=== PATIENT | female | born 1995 | race Caucasian/White ===

== ENCOUNTER 2016-11-25 20:34 | Emergency (ER) | payer OTHER ==
--- NOTE | 2016-11-25 21:25 | PHYS DOC ---
Past Medical History Past Medical History: No Pertinent History, Hypothyroid Past Surgical History: Tonsillectomy Additional Past Surgical Histo: SPINAL MENNIGITSIS AT AGE 4 Alcohol Use: Rarely Drug Use: None Adult General Chief Complaint Chief Complaint: SORE THROAT HPI HPI Patient is a 21 year old female presents emergency department stating that she has had some sinus pressure and headache with a sore throat for the last 3 days. She states she's been taken Sudafed for the pain and discomfort with minimal relief. She states she is also tried Aleve without relief as well. She states she's had a nausea feeling although she is currently vomiting here in the emergency department. Patient denies any abdominal pain or discomfort. Review of Systems Review of Systems Constitutional: Denies fever or chills [] Eyes: Denies change in visual acuity, redness, or eye pain [] HENT: C/o nasal congestion and sore throat [] Respiratory: Denies cough or shortness of breath [] Cardiovascular: No additional information not addressed in HPI [] GI: Denies abdominal pain, nausea, vomiting, bloody stools or diarrhea [] : Denies dysuria or hematuria [] Musculoskeletal: Denies back pain or joint pain [] Integument: Denies rash or skin lesions [] Neurologic: Denies headache, focal weakness or sensory changes [] Current Medications Current Medications Current Medications Medications (Trade) Dose Ordered Sig/Miles Start Time Stop Time Status Last Admin Dose Admin Ketorolac Tromethamine (Toradol) 30 mg 1X ONCE 11/25/16 21:45 11/25/16 21:46 DC 11/25/16 21:49 30 MG Ondansetron HCl 4 mg 4 mg 1X ONCE 11/25/16 21:30 11/25/16 21:31 DC 11/25/16 21:43 4 MG Sodium Chloride (Iv Sodium Chloride 0.9% 1000ml Bag) 1,000 ml @ 1,000 mls/hr 1X ONCE 11/25/16 21:30 11/25/16 22:29 11/25/16 21:44 1,000 MLS/HR Allergies Allergies Allergies Coded Allergies Type Severity Reaction Last Updated Verified No Known Drug Allergies 11/25/16 No Physical Exam Physical Exam Constitutional: Well developed, well nourished, no acute distress, non-toxic appearance. [] HENT: Normocephalic, atraumatic, bilateral external ears normal, oropharynx moist, no oral exudates, nose normal. Bilateral tympanic membranes appear to be bulging although no redness noted. Patient's mucous membranes with tying appear to have a thick white coating noted. She does have some erythematous noted in her throat no exudate noted. Eyes: PERRLA, EOMI, conjunctiva normal, no discharge. [] Neck: Normal range of motion, no tenderness, supple, no stridor. [] Cardiovascular:Heart rate regular rhythm, no murmur [] Lungs & Thorax: Bilateral breath sounds clear to auscultation [] Abdomen: Bowel sounds normal, soft, no tenderness, no masses, no pulsatile masses. [] Skin: Warm, dry, no erythema, no rash. [] Back: No tenderness Extremities: No tenderness, no cyanosis, no clubbing, ROM intact, no edema. [] Neurologic: Alert and oriented X 3, normal motor function, normal sensory function, no focal deficits noted. [] Psychologic: Affect normal, judgement normal, mood normal. [] Current Patient Data Vital Signs Vital Signs Date Time Temp Pulse Resp B/P Pulse Ox O2 Delivery O2 Flow Rate FiO2 11/25/16 21:01 100.0 122 18 98 Room Air 100.0 Lab Values Laboratory Tests Test 11/25/16 21:37 White Blood Count 11.9x10^3/uL (4.0-11.0) H Red Blood Count 4.73x10^6/uL (3.50-5.40) Hemoglobin 13.9g/dL (12.0-15.5) Hematocrit 41.1% (36.0-47.0) Mean Corpuscular Volume 87fL (79-100) Mean Corpuscular Hemoglobin 30pg (25-35) Mean Corpuscular Hemoglobin Concent 34g/dL (31-37) Red Cell Distribution Width 13.1% (11.5-14.5) Platelet Count 275x10^3/uL (140-400) Neutrophils (%) (Auto) 77% (31-73) H Lymphocytes (%) (Auto) 14% (24-48) L Monocytes (%) (Auto) 8% (0-9) Eosinophils (%) (Auto) 0% (0-3) Basophils (%) (Auto) 0% (0-3) Neutrophils # (Auto) 9.2x10^3uL (1.8-7.7) H Lymphocytes # (Auto) 1.7x10^3/uL (1.0-4.8) Monocytes # (Auto) 1.0x10^3/uL (0.0-1.1) Eosinophils # (Auto) 0.0x10^3/uL (0.0-0.7) Basophils # (Auto) 0.0x10^3/uL (0.0-0.2) Sodium Level 135mmol/L (136-145) L Potassium Level 4.2mmol/L (3.5-5.1) Chloride Level 100mmol/L (98-107) Carbon Dioxide Level 22mmol/L (21-32) Anion Gap 13 (6-14) Blood Urea Nitrogen 12mg/dL (7-20) Creatinine 0.9mg/dL (0.6-1.0) Estimated GFR (Cockcroft-Gault) 78.3 BUN/Creatinine Ratio 13 (6-20) Glucose Level 99mg/dL (70-99) Calcium Level 8.8mg/dL (8.5-10.1) Total Bilirubin 0.5mg/dL (0.2-1.0) Aspartate Amino Transferase (AST) 37U/L (15-37) Alanine Aminotransferase (ALT) 39U/L (14-59) Alkaline Phosphatase 54U/L (46-116) Total Protein 8.4g/dL (6.4-8.2) H Albumin 3.7g/dL (3.4-5.0) Albumin/Globulin Ratio 0.8 (1.0-1.7) L Laboratory Tests 11/25/16 21:37 Laboratory Tests 11/25/16 21:37 EKG EKG [] Radiology/Procedures Radiology/Procedures [] Course & Med Decision Making Course & Med Decision Making Pertinent Labs and Imaging studies reviewed. (See chart for details) Patient began vomiting here in the emergency department. She'll be provided with 1 L of IV fluids as well as Zofran for nausea and vomiting. She'll be provided with a by mouth challenge. 2228 reevaluated patient patient states that she is feeling much better. She has been tolerating by mouth fluids here in the emergency department. She is requesting a popsicle at this time. Patient rapid strep was negative although she does have sinus pressure and tenderness over the frontal area. We'll place her on Augmentin 1 tablet twice day for the next 10 days. Recommended Sudafed to help relieve some of the pressure in the head as well as Mucinex DM to help relieve the pressure in help with drainage. Also recommended plenty fluids such as water or Gatorade or propel. Patient will be discharged home in stable condition she'll also be provided with Zofran for nausea vomiting. Patient agrees with discharge instructions treatment regimens and follow-up recommendations. Signs and symptoms to return back to emergency department was also provided. [] Dragon Disclaimer Dragon Disclaimer This electronic medical record was generated, in whole or in part, using a voice recognition dictation system. Departure Departure Impression: Primary Impression: Sinusitis, acute Disposition: 01 HOME, SELF-CARE Condition: STABLE Patient Instructions: Sinusitis, [id number] Additional Instructions: You have been provided with 1 L of IV fluids as well as Zofran to help with your nausea vomiting. You are being treated for sinusitis infection. Medications as prescribed. Sudafed as prescribed by email designer [email or web address]. Mucinex DM as prescribed by email designer [email or web address]. Drink plenty of fluids such as water, Gatorade, or propel. Follow-up to primary care physician next 5-7 days. Return back to emergency prior signs and symptoms of become worse. Scripts Ondansetron (Zofran Odt)4 Mg Tab.rapdis1 Tab SL Q8HRS PRN NAUSEA #10 TAB Prov:JEANETTE MORSE APRN 11/25/16 Amoxicillin/Potassium Clav (Augmentin 875-125 Tablet)1 Each Tablet1 Tab PO BID # 20 TAB Prov:JEANETTE MORSE APRN 11/25/16 JEANETTE MORSE APRN Nov 25, 2016 21:25
[2016-11-25] MEDS ORDERED: IV NORMAL SALINE 1000ML BAG 1,000 ML IV ONE (21:30)
[2016-11-25] MEDS ORDERED: ONDANSETRON PF 4 MG/2 ML VIAL. IV ONE (21:30)
[2016-11-25] MEDS ORDERED: KETOROLAC TROMETHAMINE 30 MG/ML INJ. IV ONE (21:45)
[2016-11-25 21:48] LABS: BASO % 0 % (0-3); EOS % 0 % (0-3); HEMATOCRIT 41.1 % (36.0-47.0); HEMOGLOBIN 13.9 g/dL (12.0-15.5); LYMPH # 1.7 x10^3/uL (1.0-4.8); LYMPH % 14 % (24-48); MEAN CORPUSCULAR HEMOGLOBIN 30 pg (25-35); MEAN CORPUSCULAR HGB CONC 34 g/dL (31-37); MEAN CORPUSCULAR VOLUME 87 fL (79-100); MONO % 8 % (0-9); NEUT % 77 % (31-73); PLATELET COUNT 275 x10^3/uL (140-400); RED BLOOD COUNT 4.73 x10^6/uL (3.50-5.40); RED CELL DISTRIBUTION WIDTH 13.1 % (11.5-14.5); WHITE BLOOD COUNT 11.9 x10^3/uL (4.0-11.0)
[2016-11-25 22:00] LABS: CALCIUM 8.8 mg/dL (8.5-10.1); CREATININE 0.9 mg/dL (0.6-1.0); GFR 78.3; POTASSIUM 4.2 mmol/L (3.5-5.1)
[2016-11-25 22:05] LABS: ALBUMIN 3.7 g/dL (3.4-5.0); ALBUMIN/GLOBULIN RATIO 0.8 (1.0-1.7); TOTAL BILIRUBIN 0.5 mg/dL (0.2-1.0); TOTAL PROTEIN 8.4 g/dL (6.4-8.2)
[2016-11-25 22:30] VITALS: BP 121/67
[2016-11-25] MEDS ORDERED: ONDA4TAB10 SL (22:31)
[2016-11-25] MEDS ORDERED: AMOX1TAB61 PO (22:31)
[2016-11-26 06:28] LABS: NEGATIVE OBC STREP NEG; POSITIVE OBC STREP POS
== END 2016-11-25 23:03 | disposition home or self-care (01) ==
LOC: ER 20:34
DX: J01.90 Acute sinusitis, unspecified (principal); R11.2 Nausea with vomiting, unspecified
CPT/HCPCS: 36415; 80053; 85027; 87070; 87880; 96361; 96374; 96375; 99284; J1885; J2405; J7030; 96360